=== PATIENT | female | born 1965 | race Caucasian/White ===

== ENCOUNTER → 2017-07-12 | Outpatient (CLI) | payer OTHER, MEDICAID | LOC: FIMAGING 13:51 | PROVIDERS: ATTEND Family Medicine | DX: Z12.31 Encounter for screening mammogram for malignant neoplasm of breast (principal) ==

== ENCOUNTER → 2018-06-20 | Outpatient (CLI) | payer OTHER, MEDICAID | LOC: BHLMT 14:00 | PROVIDERS: ATTEND Internal Medicine Cardiovascular Disease | DX: R00.2 Palpitations (principal); I34.0 Nonrheumatic mitral (valve) insufficiency; I10 Essential (primary) hypertension | CPT/HCPCS: 93306-PO ==

== ENCOUNTER → 2018-07-03 | Outpatient (CLI) | payer OTHER, MEDICAID | END | disposition home or self-care (01) | LOC: BMCIMAGING 09:52 | PROVIDERS: ATTEND Podiatrist Foot & Ankle Surgery | DX: M25.772 Osteophyte, left ankle (principal); M77.52 Other enthesopathy of left foot and ankle; M79.89 Other specified soft tissue disorders ==

== ENCOUNTER → 2018-08-01 | Outpatient (CLI) | payer OTHER, MEDICAID | LOC: BMCIMAGING 13:09 | PROVIDERS: ATTEND Family Medicine | DX: Z12.31 Encounter for screening mammogram for malignant neoplasm of breast (principal) ==